=== PATIENT | female | born 1990 | race Hispanic/Latino ===

== ENCOUNTER 2017-06-17 17:00 | Inpatient (IN) | payer OTHER, SELFPAY ==
[~2017-06-17] VITALS: Ht 152.4 cm; Wt 73.5 kg
[2017-06-17 17:52] LABS: APPEARANCE,URINE Clear (CLEAR); BILIRUBIN,URINE Negative (NEGATIVE); COLOR,URINE Yellow (YELLOW); GLUCOSE, URINE (UA) Negative (NEGATIVE); KETONES,URINE Negative (NEGATIVE); LEUKOCYTE ESTERASE ,URINE Negative (NEGATIVE); NITRATE,URINE Negative (NEGATIVE); OCCULT BLOOD,URINE Negative (NEGATIVE); PH,URINE 6.5 (5.0-8.0); PROTEIN,URINE Negative (NEGATIVE)
[2017-06-17 17:59] LABS: AMPHET/METH SCREEN,URINE NEGATIVE (NEGATIVE); BARBITURATE SCREEN, URINE NEGATIVE (NEGATIVE); BENZODIAZEPINES SCREEN,URINE NEGATIVE (NEGATIVE); CANNABINOID SCREEN,URINE NEGATIVE (NEGATIVE); COCAINE SCREEN,URINE NEGATIVE (NEGATIVE); OPIATE SCREEN,URINE NEGATIVE (NEGATIVE); PHENCYCLIDINE SCREEN,URINE NEGATIVE (NEGATIVE)
[2017-06-17] MEDS ORDERED: LACTATED RINGERS 1000ML 1,000 ML IV PRN ×2 (18:34→19:20)
[2017-06-17 18:52] LABS: HEMATOCRIT 34.9 % (36-48); MEAN CORPUSCULAR HEMOGLOBIN 28.1 pg (27.0-33.0); MEAN CORPUSCULAR VOLUME 82.6 fL (79-99); PLATELET COUNT (AUTO) 192 K/uL (130-400); RED BLOOD CELL COUNT(AUTO) 4.23 MIL/uL (4.00-5.50); RED CELL DISTRIBUTION WIDTH 15.1 % (11.0-15.5); WHITE BLOOD COUNT (AUTO) 9.5 K/uL (4.8-10.8)
[2017-06-17] MEDS ORDERED: ROPIVACAINE 0.2%200ML EPIDURAL 200 ML EP SCH (19:30)
[2017-06-17] MEDS ORDERED: EPHEDRINE SULFATE 50 MG/ML AMPULE IVP PRN (19:30)
[2017-06-17] MEDS ORDERED: NALOXONE HCL 0.4 MG/1 ML ML IV PRN (19:30)
[2017-06-17] MEDS ORDERED: AMPICILLIN 2GM+NS 100ML 100 ML IV SCH (19:30)
[2017-06-17] MEDS ORDERED: LACTATED RINGERS 500 ML 500 ML IV PRN (19:30)
[2017-06-17] MEDS ORDERED: AMPICILLIN 2GM+NS 100ML 100 ML IV ONE (19:34)
[2017-06-17] MEDS ORDERED: OXYTOCIN 10 USP UNITS/ML 20 UNIT in LACTATED RINGERS 1000ML 1,000 ML IV SCH (20:30)
[2017-06-17] MEDS ORDERED: OXYTOCIN 10 USP UNITS/ML ONE ×2 (20:53→23:13)
[2017-06-17] MEDS ORDERED: MEASLES/MUMPS/RUBELLA VACCINE, LIVE 0.5 ML/VIAL SQ PRN (22:30)
[2017-06-17] MEDS ORDERED: ACETAMINOPHEN 325 MG TAB PO PRN (22:30)
[2017-06-17] MEDS ORDERED: BENZOCAINE/LANOLIN/ALOE VERA 60 ML AEROSOL TP PRN (22:30)
[2017-06-17] MEDS ORDERED: OXYTOCIN-LR 20 UNITS/1000 ML 1,000 ML IV SCH (22:30)
[2017-06-17] MEDS ORDERED: DIPH,PERTUSS(ACELL),TET VAC/PF 0.5 ML VIAL IM PRN (22:30)
[2017-06-17] MEDS ORDERED: ACETAMINOPHEN-CODEINE 300/30MG TAB PO PRN (22:30)
[2017-06-17] MEDS ORDERED: LANOLIN 30GM OINTMENT TP PRN (22:30)
[2017-06-17] MEDS ORDERED: WITCH HAZEL 1 PAD TP PRN (22:30)
[2017-06-17] MEDS: IBUPROFEN 800 MG TAB PO PRN (23:30)
[2017-06-18] VITALS (7 sets, daily range): BP systolic 90–109; BP diastolic 51–76
[2017-06-18 06:58] LABS: HEMATOCRIT 34.6 % (36-48); MEAN CORPUSCULAR HEMOGLOBIN 28.4 pg (27.0-33.0); MEAN CORPUSCULAR HGB CONC 34.3 g/dL (32.0-36.0); MEAN CORPUSCULAR VOLUME 82.9 fL (79-99); PLATELET COUNT (AUTO) 172 K/uL (130-400); RED BLOOD CELL COUNT(AUTO) 4.17 MIL/uL (4.00-5.50); WHITE BLOOD COUNT (AUTO) 14.4 K/uL (4.8-10.8)
[2017-06-18] MEDS: DOCUSATE SODIUM 100 MG CAP PO SCH ×2 (08:36→21:27)
[2017-06-18] MEDS: IBUPROFEN 800 MG TAB PO PRN ×2 (08:37→16:04)
[2017-06-19] MEDS: IBUPROFEN 800 MG TAB PO PRN ×2 (03:42→12:37)
[2017-06-19 03:43] VITALS: BP 97/48
[2017-06-19 07:15] VITALS: BP 103/71
[2017-06-19 08:20] LABS: HEPATITIS Bs ANTIGEN SCREEN P Negative (Negative)
[2017-06-19] MEDS: DOCUSATE SODIUM 100 MG CAP PO SCH ×2 (08:25→21:18)
[2017-06-19 11:14] VITALS: BP 104/63
[2017-06-19 15:41] VITALS: BP 110/60
[2017-06-19 20:15] VITALS: BP 113/68
[2017-06-20 00:05] VITALS: BP 101/59
[2017-06-20 03:22] VITALS: BP 98/63
[2017-06-20] MEDS: IBUPROFEN 800 MG TAB PO PRN (03:31)
[2017-06-20 07:45] VITALS: BP 105/55
[2017-06-20] MEDS: DOCUSATE SODIUM 100 MG CAP PO SCH (09:41)
[2017-06-20 11:30] VITALS: BP 109/73
== END 2017-06-20 14:00 | disposition home or self-care (01) | DRG 775 ==
LOC: EDH 17:00 → OBSVTOIN 17:01 → LDH 17:01 → WSH 06-18 00:50
PROC: 10E0XZZ Delivery of Products of Conception, External Approach (ICD-10-PCS; principal; 2017-06-17)
PROC: 0KQM0ZZ Repair Perineum Muscle, Open Approach (ICD-10-PCS; 2017-06-17)
PROC: 10907ZC Drainage of Amniotic Fluid, Therapeutic from Products of Conception, Via Natural or Artificial Opening (ICD-10-PCS; 2017-06-17)
PROC: 3E0R3BZ Introduction of Anesthetic Agent into Spinal Canal, Percutaneous Approach (ICD-10-PCS; 2017-06-17)
PROC: 00HU33Z Insertion of Infusion Device into Spinal Canal, Percutaneous Approach (ICD-10-PCS; 2017-06-17)
PROC: 3E0234Z Introduction of Serum, Toxoid and Vaccine into Muscle, Percutaneous Approach (ICD-10-PCS; 2017-06-17)
PROC: 3E0134Z Introduction of Serum, Toxoid and Vaccine into Subcutaneous Tissue, Percutaneous Approach (ICD-10-PCS; 2017-06-17)
DX: O70.1 Second degree perineal laceration during delivery (principal); Z37.0 Single live birth; Z23 Encounter for immunization; Z3A.37 37 weeks gestation of pregnancy
CPT/HCPCS: 36415; 80305; 81003; 85027; 86592; 86701; 86850; 86900; 86901; 87340; 87390; 90707; A4314; J0290; J2590; J7120